=== PATIENT | male | born 1960 | race Caucasian/White ===

== ENCOUNTER 2016-09-16 | Emergency (ER) | payer MEDICAID ==
[~2016-09-16] VITALS: Ht 172.7 cm; Wt 78.0 kg
[2016-09-16 00:02] VITALS: BP 138/68; PULSE 67; RESP 16; TEMP 98.5; O2SAT 97
[2016-09-16] MEDS ORDERED: LAMI1SPR TOPICAL (00:20)
[2016-09-16] MEDS ORDERED: DICL75TA PO (00:20)
--- NOTE | 2016-09-16 00:28 | PD ---
HPI Chief Complaint: Injury Time Seen by Provider: 00:21 Travel History International Travel<30 days: No Contact w/Intl Traveler<30days: No Traveled to known affect area: No History of Present Illness HPI 56-year-old white male presents with a mobile complains of left ankle pain after injury this afternoon. He states that he had struck his ankle. He has a history of chronic foot and ankle pain after having bilateral foot and heel fractures. He also states that his feet are been wet for some time now and have developed a bad rash between his toes. Symptoms are moderate. He denies any fever chills. PFSH Past Medical History Narrative Medical Hypertension, coronary artery disease Hx Anticoagulant Therapy: Yes (ASA) Cardiovascular Problems: Yes ([place], STENT) Respiratory: Yes (COPD) Tetanus Vaccination: < 5 Years Past Surgical History Narrative Surgical PTCA with stent, bilateral ankle fractures os calcis fractures Social History Alcohol Use: Yes Tobacco Use: Yes Allergies-Medications (Allergen,Severity, Reaction): Coded Allergies: No Known Allergies (Unverified , 09/16/16) Reported Meds & Prescriptions Reported Meds & Active Scripts Active No Active Prescriptions or Reported Medications Review of Systems Except as stated in HPI: all other systems reviewed are Neg Physical Exam Narrative GENERAL: This is a well-nourished, well-developed patient, in no apparent distress. SKIN: No rashes, ecchymoses or lesions. Warm and dry. HEAD: Atraumatic. Normocephalic. EYES: PERRL, EOMI, no discharge or injection. No scleral icterus. EARS: Clear NOSE: Nasal turbinates appear normal. THROAT: Mucosa pink and moist. Airway patent. NECK: Trachea midline. supple, moves head freely. LUNGS: Clear to auscultation. CV: Regular in rhythm. ABDOMEN: Soft nontender. EXT: No clubbing cyanosis. Examination of the left lower extremity reveals tenderness to the lateral anterior talofibular ligament. Patient has mild swelling. No significant bony tenderness over the medial lateral malleolus. No pain in the heel or Achilles. Patient has large amount of skin breakdown, maceration and very foul odor to both feet. This is to the interdigital spaces of the toes and distal forefoot. Data Data Last Documented VS Vital Signs Date Time Temp Pulse Resp B/P Pulse Ox O2 Delivery O2 Flow Rate FiO2 09/16/16 00:02 98.5 67 16 138/68 97 Orders Ankle, Complete ([id number]) (09/16/16 00:18) Ice/Cold Pack (09/16/16 00:18) Splint Or Brace Apply/Monitor (09/16/16 00:18) MDM Medical Decision Making Medical Screen Exam Complete: Yes Emergency Medical Condition: Yes Medical Record Reviewed: Yes Interpretation(s) Left ankle: There is a nondisplaced fracture off the tip of the lateral malleolus. Differential Diagnosis MDM: High Differential diagnoses: Fracture, sprain, strain, dislocation, contusion, neurovascular injury Narrative Course X-ray of the left ankle is negative for acute bony injury. Patient of significant tinea pedis. Diagnosis Primary Impression: Fractured lateral malleolus Qualified Code: S82.64XA - Closed nondisplaced fracture of lateral malleolus of right fibula, initial encounter Additional Impression: Tinea pedis Qualified Code: B35.3 - Tinea pedis of both feet Patient Instructions: General Instructions Additional Instructions: Rest. Elevation. Dileep wrap and chem walker. Twice daily wound care with soap, water and Lamisil. Follow-up with a media [employer] in one week. Keep your feet clean and dry. Med/Other Pt SpecificInfo: Prescription(s) given, Wound Care Scripts No Active Prescriptions or Reported Meds Disposition: 01 DISCHARGE HOME Condition: Stable Kailash Ba Sep 16, 2016 00:28
--- NOTE | 2016-09-16 00:45 | RADRPT ---
EXAM DATE/TIME: 09/16/2016 00:39 [facility] COMPARISON: No previous studies available for comparison. INDICATIONS : Left ankle pain post hitting on trailer hitch. MEDICAL HISTORY : None. SURGICAL HISTORY : ORIF left heel ENCOUNTER: Initial ACUITY: 1 day PAIN SCORE: 7/10 LOCATION: Left ankle FINDINGS: There is soft tissue swelling at the lateral aspect of the ankle, 2 screws traversing the calcaneus w ith remote fracture deformity of the calcaneus, and an acute avulsion fracture fragment off the tip o f the distal fibula. CONCLUSION: Acute distal fibular fracture with soft tissue swelling. Walt Orlando MD on September 16, 2016 at 0:43 Board Certified Radiologist. This report was verified electronically.
[2016-09-16] MEDS ORDERED: HYDR-3533 PO (00:53)
[2016-09-16] MEDS ORDERED: ACETAMINOPHEN/HYDROcodone 325 MG/5 MG TAB PO ONE (01:00)
== END 2016-09-16 02:39 | disposition home or self-care (01) ==
LOC: NEPD
DX: S82.64XA Nondisplaced fracture of lateral malleolus of right fibula, initial encounter for closed fracture (principal); B35.3 Tinea pedis; I10 Essential (primary) hypertension; I25.10 Atherosclerotic heart disease of native coronary artery without angina pectoris; Z79.82 Long term (current) use of aspirin; I25.2 Old myocardial infarction; Z72.0 Tobacco use; X58.XXXA Exposure to other specified factors, initial encounter
CPT/HCPCS: 73610; 99283; E0113; L2114

== ENCOUNTER 2016-09-26 07:39 | Emergency (ER) | payer MEDICAID ==
[~2016-09-26] VITALS: Ht 172.7 cm; Wt 75.0 kg
[~2016-09-26 07:39] MED LIST: HYDR-3533 PO
[2016-09-26 07:41] VITALS: BP 200/86; PULSE 86; RESP 18; TEMP 98.4; O2SAT 99
[2016-09-26 07:43] VITALS: BP 191/87
[2016-09-26 07:54] VITALS: BP 181/83; PULSE 63; RESP 20
[2016-09-26] MEDS ORDERED: LISI-515 PO (07:54)
[2016-09-26] MEDS ORDERED: LISINOPRIL 20 MG TAB PO ONE (08:15)
[2016-09-26] MEDS ORDERED: KETOROLAC TROMETHAMINE 60 MG/2 ML (IM) VIAL IM ONE (08:15)
[2016-09-26] MEDS ORDERED: DIAZEPAM 5 MG TAB PO ONE (08:15)
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
[2016-09-26 08:24] VITALS: BP 157/74; PULSE 57; RESP 20
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
[2016-09-26] MEDS ORDERED: IBUP-232 PO (11:34)
== END 2016-09-26 11:58 | disposition home or self-care (01) ==
LOC: NEPE 07:39
DX: M54.42 Lumbago with sciatica, left side (principal); I10 Essential (primary) hypertension; E78.00 Pure hypercholesterolemia, unspecified; Z72.0 Tobacco use; Z79.82 Long term (current) use of aspirin; Z86.79 Personal history of other diseases of the circulatory system; Z87.09 Personal history of other diseases of the respiratory system
CPT/HCPCS: 72100; 72131; 96372; 99285; J1885

== ENCOUNTER 2016-10-18 02:44 | Emergency (ER) | payer MEDICAID ==
[~2016-10-18] VITALS: Ht 172.7 cm; Wt 75.0 kg
[~2016-10-18 02:44] MED LIST changes: -HYDR-3533 PO; +IBUP-232 PO; +LISI-515 PO
[2016-10-18 02:59] VITALS: BP 148/69; PULSE 63; RESP 18; TEMP 98.1; O2SAT 97
[2016-10-18] MEDS ORDERED: DICL75TA PO (03:05)
[2016-10-18] MEDS ORDERED: ROBA500T PO (03:05)
--- NOTE | 2016-10-18 03:13 | PD ---
HPI Chief Complaint: Back/ Neck Pain or Injury Time Seen by Provider: 02:53 Travel History International Travel<30 days: No Contact w/Intl Traveler<30days: No Traveled to known affect area: No History of Present Illness HPI 56-year-old white male presents to emergency department for evaluation of back pain. He states that he had a injury to his back last month and was given prescription for Flexeril and Motrin. He states that it was doing better until this evening. [place]. He states that he had worsening pain this evening causing him to call 911. Patient denies any acute injury today. Patient is moderate. Worse with activity and bending. No alleviating factor. He denies any recent illness. No fever chills. No abdominal pain or urinary symptoms. He states he had taken one of his Flexeril without relief. The patient does admit to substance abuse. He states that he has not used any drugs in nearly 6-8 months. He does drink alcohol and smoke cigarettes. PFSH Past Medical History Hx Anticoagulant Therapy: Yes (ASA) Cardiovascular Problems: Yes ([place], STENT) High Cholesterol: Yes Chest Pain: Yes Cerebrovascular Accident: Yes Diminished Hearing: No Hypertension: Yes Respiratory: Yes (COPD) Immunizations Current: Yes Past Surgical History Coronary Stent: Yes Social History Alcohol Use: Yes (RARELY) Tobacco Use: Yes (1PPD) Substance Use: No (DENIES-HX HEROIN OCC) Allergies-Medications (Allergen,Severity, Reaction): Coded Allergies: No Known Allergies (Unverified , 10/18/16) Reported Meds & Prescriptions Reported Meds & Active Scripts Active Diclofenac Sodium DR (Diclofenac Sodium) 75 Mg Tabdr 75 Mg PO BID Robaxin (Methocarbamol) 500 Mg Tab 1,000 Mg PO TID Ibuprofen 600 Mg Tab 600 Mg PO Q8HR PRN Reported Lisinopril 20 Mg Tab 20 Mg PO DAILY Review of Systems Except as stated in HPI: all other systems reviewed are Neg Physical Exam Narrative GENERAL: Well-developed, well-nourished in no apparent distress. Nontoxic appearing. HEAD: Normocephalic, atraumatic. EYES: Pupils equal round and reactive. Extraocular motions intact. No scleral icterus. No injection or drainage. ENT: Nose clear. Throat without erythema, tonsillar hypertrophy or exudate. Uvula midline. Airway patent. NECK: Trachea midline. Supple, nontender, moves head freely. No central bony tenderness or spasm. CARDIOVASCULAR: Regular rate and rhythm without murmurs, gallops, or rubs. RESPIRATORY: Clear to auscultation. Breath sounds equal bilaterally. No wheezes , rales, or rhonchi. GASTROINTESTINAL: Abdomen soft, non-tender, nondistended. No hepato-splenomegaly , or palpable masses. No guarding. EXTREMITIES: No clubbing, cyanosis, or edema. No joint tenderness. BACK: No central bony tenderness without deformity. Patient complains of bilateral paraspinal tenderness in the lower lumbar region No flank tenderness. Patient is able to stand and bend forward. No saddle anesthesia. NEUROLOGICAL: Awake, alert and oriented x 3 .Cranial nerves grossly intact. Motor and sensory grossly within normal limits. Normal speech. Data Data Last Documented VS Vital Signs Date Time Temp Pulse Resp B/P (MAP) Pulse Ox O2 Delivery O2 Flow Rate FiO2 10/18/16 02:59 98.1 63 18 148/69 (95) 97 Orders Orders Ketorolac Inj (Toradol Inj) (10/18/16 03:15) Orphenadrine Inj (Norflex Inj) (10/18/16 03:15) Acetamin-Hydrocod 325-5 Mg (Hana 5-325 (10/18/16 03:15) MDM Medical Decision Making Medical Screen Exam Complete: Yes Emergency Medical Condition: Yes Medical Record Reviewed: Yes Differential Diagnosis MDM: High Differential diagnoses: AAA,Fracture, sprain, strain, HNP, nerve or vascular injury, epidural abscess, pilonidal cyst, pyelonephritis, UTI, nephrolithiasis, ureterolithiasis Narrative Course Patient given Toradol 60 mg and Norflex 60 mg IM. Lortab 5 mg by mouth. Patient will be given a prescription for diclofenac and Robaxin. This is acute exacerbation of chronic back pain Diagnosis Primary Impression: Acute exacerbation of chronic low back pain Patient Instructions: Narcotic given in the ED, General Instructions Additional Instructions: Rest. Ice for the next 3 days followed by heat . Robaxin and Voltaren. Follow-up with a primary care doctor in one week. Return to the ER for emergencies. Med/Other Pt SpecificInfo: Prescription(s) given Scripts Diclofenac Sodium (Diclofenac Sodium DR) 75 Mg Tabdr 75 MG PO BID, #20 TAB 0 Refills Prov: Sherrie Beckford MD 10/18/16 Methocarbamol (Robaxin) 500 Mg Tab 1000 MG PO TID for Muscle Spasm, #60 TAB 0 Refills Prov: Sherrie Beckford MD 10/18/16 Disposition: 01 DISCHARGE HOME Condition: Stable Kailash Ba Oct 18, 2016 03:13
[2016-10-18] MEDS ORDERED: ORPHENADRINE INJ 60 MG/2 ML AMP IM ONE (03:15)
[2016-10-18] MEDS ORDERED: KETOROLAC TROMETHAMINE 60 MG/2 ML (IM) VIAL IM ONE (03:15)
[2016-10-18] MEDS ORDERED: ACETAMINOPHEN/HYDROcodone 325 MG/5 MG TAB PO ONE (03:15)
== END 2016-10-18 04:54 | disposition home or self-care (01) ==
LOC: NEPD 02:44
DX: M54.5 Low back pain (principal); G89.29 Other chronic pain; F17.210 Nicotine dependence, cigarettes, uncomplicated
CPT/HCPCS: 96372; 99284; J1885; J2360

== ENCOUNTER 2016-11-26 00:03 | Emergency (ER) | payer MEDICAID ==
[~2016-11-26] VITALS: Ht 172.7 cm; Wt 76.0 kg
[~2016-11-26 00:03] MED LIST changes: +DICL75TA PO; +ROBA500T PO
[2016-11-26 00:05] VITALS: BP 128/60; PULSE 75; RESP 16; TEMP 98.4; O2SAT 96
[2016-11-26] MEDS ORDERED: INDO25CA PO (00:48)
--- NOTE | 2016-11-26 00:49 | PD ---
HPI Chief Complaint: Skin Problem Time Seen by Provider: 00:42 Travel History International Travel<30 days: No Contact w/Intl Traveler<30days: No Traveled to known affect area: No History of Present Illness HPI Patient is a 56-year-old male presenting to emergency department evaluation of left elbow swelling. Patient states it started 3-4 days ago he denies any injury or trauma. He denies any significant pain, he states the pain is 3 out of 10 and states it sort times. He denies bumping it or hitting it. He denies any fever, chills, redness, warmth to the affected area. He denies history of the same. Pain is alleviated with rest, exacerbated if it's hit on something. PFSH Past Medical History Hx Anticoagulant Therapy: Yes (ASA) Cardiovascular Problems: Yes ([place], STENT) High Cholesterol: Yes Chest Pain: Yes Cerebrovascular Accident: Yes (CVA) Diminished Hearing: No Hypertension: Yes Respiratory: Yes Immunizations Current: Yes Past Surgical History Coronary Stent: Yes Social History Alcohol Use: Yes (RARELY) Tobacco Use: Yes (1PPD) Substance Use: No (DENIES-HX HEROIN OCC) Allergies-Medications (Allergen,Severity, Reaction): Coded Allergies: No Known Allergies (Unverified , 11/26/16) Reported Meds & Prescriptions Reported Meds & Active Scripts Active Diclofenac Sodium DR (Diclofenac Sodium) 75 Mg Tabdr 75 Mg PO BID Robaxin (Methocarbamol) 500 Mg Tab 1,000 Mg PO TID Ibuprofen 600 Mg Tab 600 Mg PO Q8HR PRN Reported Lisinopril 20 Mg Tab 20 Mg PO DAILY Review of Systems Except as stated in HPI: all other systems reviewed are Neg Musculoskeletal: Positive: Edema Physical Exam Narrative GENERAL: Well-developed, well-nourished, alert male. Resting comfortably in no acute distress. SKIN: Warm and dry. No rash or obvious lesions, no erythema noted to the posterior left elbow. Edema to left elbow posteriorly. Nontender to palpation. HEAD: Normocephalic. EYES: No scleral icterus. No injection or drainage. NECK: Supple, trachea midline. No JVD or lymphadenopathy. CARDIOVASCULAR: Regular rate and rhythm without murmurs, gallops, or rubs. RESPIRATORY: Breath sounds equal bilaterally. No accessory muscle use. GASTROINTESTINAL: Abdomen soft, non-tender, nondistended. MUSCULOSKELETAL: No cyanosis, full range of motion in left elbow, 2+ radial pulse, brisk was 3 second capillary refill. No obvious deformities noted other than the edema. BACK: Nontender without obvious deformity. No CVA tenderness. Data Data Last Documented VS Vital Signs Date Time Temp Pulse Resp B/P (MAP) Pulse Ox O2 Delivery O2 Flow Rate FiO2 11/26/16 00:05 98.4 75 16 128/60 (82) 96 Room Air Orders Orders Dileep Bandage (11/26/16 00:42) MDM Medical Decision Making Medical Screen Exam Complete: Yes Emergency Medical Condition: Yes Interpretation(s) Vital Signs Date Time Temp Pulse Resp B/P (MAP) Pulse Ox O2 Delivery O2 Flow Rate FiO2 11/26/16 00:05 98.4 75 16 128/60 (82) 96 Room Air Differential Diagnosis Septic arthritis versus cranium bursitis versus cellulitis versus other Narrative Course Patient is a 48-year-old male presenting to emergency for evaluation of left elbow swelling. Patient's vital signs are stable, he is afebrile. He denies any injury or trauma. Physical examination appears consistent with bursitis. Patient will be placed in an Dileep wrap for compression to help with swelling. He will be placed on anti-inflammatory medications. His primary care provider is Dr. Dobbins, he was advised to follow-up with him. He was educated on the signs and symptoms of infection and none of which are present at this time. He was advised to return to emergency department immediately for any new or worsening symptoms. Patient verbalizes understanding of these instructions. Patient is stable for discharge. Diagnosis Primary Impression: Bursitis of left elbow Qualified Codes: M70.22 - Olecranon bursitis, left elbow Referrals: Dave Dobbins MD 1 week Patient Instructions: Elbow Bursitis (ED), General Instructions Additional Instructions: Follow-up with your primary doctor Keep Dileep wrap on for support and compression Take medications as directed Return to emergency department for any new or worsening symptoms Med/Other Pt SpecificInfo: Prescription(s) given Scripts Indomethacin (Indomethacin) 25 Mg Cap 25 MG PO TID Y for PAIN SCALE 1 TO 10, #30 CAP 0 Refills Take with food, milk, or antacids to decrease stomach adverse effects. Prov: Sandy Craven 11/26/16 Disposition: 01 DISCHARGE HOME Condition: Stable Sandy Craven Nov 26, 2016 00:49
[2016-11-26] MEDS ORDERED: SUBO8MIS SL (18:43)
[2016-11-27] MEDS ORDERED: LISI-515 PO (02:19)
== END 2016-11-26 01:11 | disposition home or self-care (01) ==
LOC: NEPD 00:03
DX: M70.22 Olecranon bursitis, left elbow (principal); I10 Essential (primary) hypertension; F17.200 Nicotine dependence, unspecified, uncomplicated
CPT/HCPCS: 99283

== ENCOUNTER 2016-11-26 18:00 | Emergency (ER) | payer MEDICAID ==
[~2016-11-26] VITALS: Ht 172.7 cm; Wt 76.4 kg
[~2016-11-26 18:00] MED LIST changes: +INDO25CA PO
[2016-11-26 18:03] VITALS: BP 204/93; PULSE 66; RESP 15; TEMP 98.4; O2SAT 99
--- NOTE | 2016-11-26 18:16 | PD ---
Physical Exam Date Seen by Provider: Nov 26, 2016 Time Seen by Provider: 18:13 Narrative 56-year-old male presents to the emergency department with reports of self-medication with heroine for a sense of paranoid. Patient's been off his meds approximately 9 months. Patient has had painful swelling of the left elbow for the past 3 days which was seen in the ED last evening. Patient now is feeling more anxious and paranoid and is requesting psychiatric evaluation. Patient denies specific suicidal ideation or homicidal ideation at this time. Patient has no known drug allergies. Data Data Last Documented VS Vital Signs Date Time Temp Pulse Resp B/P (MAP) Pulse Ox O2 Delivery O2 Flow Rate FiO2 11/26/16 18:03 98.4 66 15 204/93 (130) 99 MDM Medical Record Reviewed: Yes Supervised Visit with DONITA: Yes Narrative Course Patient appears medically stable and cooperative. Psychiatric labs ordered per protocol. Condition: Stable Valentin Monson Nov 26, 2016 18:16
[2016-11-26 18:41] VITALS: BP 208/89; PULSE 60; RESP 16; O2SAT 98
[2016-11-26] MEDS ORDERED: SUBO8MIS SL (18:43)
[2016-11-26 18:49] LABS: AUTOMATED NEUTROPHIL # 5.7 TH/MM3 (1.8-7.7); BASOPHIL # 0.1 TH/MM3 (0-0.2); BASOPHIL % 0.7 % (0.0-2.0); EOSINOPHIL # 0.3 TH/MM3 (0-0.4); EOSINOPHIL % 3.4 % (0.0-4.0); HEMO FLAGS DIFF FINAL; LYMPH % 22.7 % (9.0-44.0); MEAN CELL VOLUME 76.1 FL (80.0-100.0); MEAN CORPUSCULAR HEMOGLOBIN 24.4 PG (27.0-34.0); MEAN CORPUSCULAR HGB CONC 32.1 % (32.0-36.0); MONO % 8.5 % (0.0-8.0); NEUT % 64.7 % (16.0-70.0); PLATELET COUNT 258 TH/MM3 (150-450); RED BLOOD COUNT 5.39 MIL/MM3 (4.50-5.90); RED CELL DISTRIBUTION WIDTH 15.1 % (11.6-17.2); WHITE BLOOD COUNT 8.9 TH/MM3 (4.0-11.0)
[2016-11-26 19:03] LABS: ALT (GPT) 22 U/L (12-78); ANION GAP 6 MEQ/L (5-15); AST (GOT) 26 U/L (15-37); BLOOD UREA NITROGEN 27 MG/DL (7-18); CHLORIDE 103 MEQ/L (98-107); GLOMERULAR FILTRATION RATE 47 ML/MIN (>89); POTASSIUM 3.8 MEQ/L (3.5-5.1); SODIUM (NA) 135 MEQ/L (136-145)
[2016-11-26 19:06] LABS: ALKALINE PHOSPHATASE 105 U/L (45-117); TOTAL BILIRUBIN ADULT 0.3 MG/DL (0.2-1.0)
[2016-11-26] MEDS: SODIUM CHLOR 0.9% 1000 ML INJ 1,000 ML IV SCH ×2 (21:15→21:29)
[2016-11-26 22:59] VITALS: BP 172/74; PULSE 82; RESP 16; O2SAT 98
--- NOTE | 2016-11-26 23:33 | PD ---
HPI Chief Complaint: Psychiatric Symptoms Time Seen by Provider: 20:23 Travel History International Travel<30 days: No Contact w/Intl Traveler<30days: No Traveled to known affect area: No History of Present Illness HPI This is a 56-year-old male who presents to the emergency department with increasing depression, feeling like he is having trouble controlling his thoughts, constant, moderate severity. He says that 3 days ago he injected himself with Hancock-Valerie in a suicide attempt. He has a history of chronic alcoholism and substance abuse. PFSH Past Medical History Hx Anticoagulant Therapy: Yes (ASA) Bipolar Disorder: Yes Anxiety: Yes Cardiovascular Problems: Yes ([place], STENT) High Cholesterol: Yes Chest Pain: Yes Cerebrovascular Accident: Yes (CVA) Diminished Hearing: No Hypertension: Yes Respiratory: Yes Immunizations Current: Yes Myocardial Infarction: Yes Schizophrenia: Yes Influenza Vaccination: No Past Surgical History Coronary Stent: Yes Social History Alcohol Use: Yes (RARELY) Tobacco Use: Yes (1PPD) Substance Use: No (HEROIN AND COCAINE) Allergies-Medications (Allergen,Severity, Reaction): Coded Allergies: No Known Allergies (Unverified , 11/26/16) Reported Meds & Prescriptions Reported Meds & Active Scripts Active Reported Suboxone Sublingual Film (Buprenorphine-Naloxone Sublingual Film) 8-2 Mg Film 1 Film SL BID Unique ID number required: Review of Systems Except as stated in HPI: all other systems reviewed are Neg Physical Exam Narrative GENERAL:Well appearing, no acute distress SKIN: Focused skin assessment warm and dry. HEAD: Atraumatic. Normocephalic. EYES: Pupils equal and round. No injection or drainage. ENT: Moist mucous membranes NECK: Trachea midline. CARDIOVASCULAR: Regular rate and rhythm. No murmur appreciated. RESPIRATORY: Clear to auscultation. Breath sounds equal bilaterally. GASTROINTESTINAL: Abdomen soft, non-tender, nondistended. MUSCULOSKELETAL: No obvious deformities. NEUROLOGICAL: Awake and alert. No obvious cranial nerve deficits. Moving all extremities. PSYCHIATRIC: Expressing any suicidal ideation, normal mood and affect somewhat incongruent to his comments. Data Data Last Documented VS Vital Signs Date Time Temp Pulse Resp B/P (MAP) Pulse Ox O2 Delivery O2 Flow Rate FiO2 11/26/16 22:59 82 16 172/74 (106) 98 Room Air 11/26/16 18:03 98.4 Orders Orders Complete Blood Count With Diff (11/26/16 18:16) Comprehensive Metabolic Panel (11/26/16 18:16) Psych Screen (11/26/16 18:16) Drug Screen, Random Urine (11/26/16 18:16) Sodium Chlor 0.9% 1000 Ml Inj (Ns 1000 M (11/26/16 21:15) Labs Laboratory Tests Test 11/26/16 18:33 11/26/16 22:42 White Blood Count 8.9 TH/MM3 Red Blood Count 5.39 MIL/MM3 Hemoglobin 13.2 GM/DL Hematocrit 41.0 % Mean Corpuscular Volume 76.1 FL Mean Corpuscular Hemoglobin 24.4 PG Mean Corpuscular Hemoglobin Concent 32.1 % Red Cell Distribution Width 15.1 % Platelet Count 258 TH/MM3 Mean Platelet Volume 7.7 FL Neutrophils (%) (Auto) 64.7 % Lymphocytes (%) (Auto) 22.7 % Monocytes (%) (Auto) 8.5 % Eosinophils (%) (Auto) 3.4 % Basophils (%) (Auto) 0.7 % Neutrophils # (Auto) 5.7 TH/MM3 Lymphocytes # (Auto) 2.0 TH/MM3 Monocytes # (Auto) 0.8 TH/MM3 Eosinophils # (Auto) 0.3 TH/MM3 Basophils # (Auto) 0.1 TH/MM3 CBC Comment DIFF FINAL Differential Comment Blood Urea Nitrogen 27 MG/DL Creatinine 1.53 MG/DL Random Glucose 80 MG/DL Total Protein 7.9 GM/DL Albumin 3.4 GM/DL Calcium Level 9.0 MG/DL Alkaline Phosphatase 105 U/L Aspartate Amino Transf (AST/SGOT) 26 U/L Alanine Aminotransferase (ALT/SGPT) 22 U/L Total Bilirubin 0.3 MG/DL Sodium Level 135 MEQ/L Potassium Level 3.8 MEQ/L Chloride Level 103 MEQ/L Carbon Dioxide Level 26.0 MEQ/L Anion Gap 6 MEQ/L Estimat Glomerular Filtration Rate 47 ML/MIN MDM Medical Decision Making Medical Screen Exam Complete: Yes Emergency Medical Condition: Yes Interpretation(s) No leukocytosis Electrolytes are reassuring Differential Diagnosis Alcohol intoxication, drug intoxication, adjustment reaction, alcohol-induced mood disorder Narrative Course This is a 56-year-old male who presents to the emergency department having injected Hancock-Valerie in a suicide attempt 3 days ago. He appears well on exam. His affect is somewhat incongruent with his chief complaint. Labs are obtained which were reassuring. I think patient is medically cleared for psychiatric evaluation. Condition: Stable Amy Aaron MD Nov 26, 2016 23:33
[2016-11-27 02:00] VITALS: BP 184/86; PULSE 55; RESP 18; O2SAT 97
[2016-11-27] MEDS ORDERED: LISI-515 PO (02:19)
[2016-11-27] MEDS ORDERED: amLODIPine BESYLATE 5 MG TAB PO ONE (06:15)
[2016-11-27 06:18] VITALS: BP 188/83; PULSE 59; RESP 18; O2SAT 98
[2016-11-27] MEDS ORDERED: ACETAMINOPHEN 325 MG TAB PO ONE (06:30)
[2016-11-27 10:00] VITALS: BP 137/67; PULSE 55; RESP 18
[2016-11-27 14:05] VITALS: BP 154/77; PULSE 57; RESP 16
[2016-11-27 14:11] VITALS: BP 151/77; PULSE 57; RESP 16; TEMP 98.2; O2SAT 98
[2016-11-27] MEDS ORDERED: FLUMAZENIL 0.5 MG/5 ML VIAL IV PUSH PRN (14:30)
[2016-11-27] MEDS ORDERED: LORazepam 2 MG TAB PO PRN (14:30)
[2016-11-27] MEDS ORDERED: LORazepam 2 MG/ML VIAL IV PUSH PRN ×4 (14:30)
[2016-11-27] MEDS: LORazepam 1 MG TAB PO PRN ×2 (14:49→20:14)
[2016-11-27 18:00] VITALS: BP 145/81; PULSE 56; RESP 18
[2016-11-28 02:05] VITALS: BP 204/95; PULSE 58; RESP 16; TEMP 100.8; O2SAT 97
[2016-11-28 02:10] VITALS: BP 165/99
[2016-11-28] MEDS: LORazepam 1 MG TAB PO PRN (06:32)
[2016-11-28] MEDS ORDERED: cloNIDine HCL 0.2 MG TAB PO ONE (09:45)
--- NOTE | 2016-11-28 09:54 | PD ---
History of Present Illness Chief Complaint: Psychiatric Symptoms Time Seen by Provider: 09:30 Travel History International Travel<30 Days: No Contact w/Intl Traveler<30days: No Known affected area: No Legal Status Legal Status: Voluntary History of Present Illness: History of Present Illness This is a 56-year-old male with history of substance use disorder, positive toxicology for opiates, barbiturates, cocaine who presents to the emergency department on a voluntary basis reporting increase in depression, feeling like he is having trouble controlling his thoughts, requesting to be assisted with obtaining a men's alf house. He says that 3 days ago he injected himself with Chauvin-Valerie in a suicide attempt but did not seek treatment at that time. EMR reviewed. The patient had presented earlier in the day to this ED complaining of elbow pain.At that time he did not report that he was depressed or that he had injected himself with Chauvin-Valerie and did not report any psychiatric symptoms. The patient was monitored in secure environment for extended period of time. He did not present any behavioral concerns and no suicidality. He did not appear to be responding to internal stimuli. This morning he is awake, alert and oriented. His speech is clear and logical. he is not psychotic, not internally preoccupied. Does not appear depressed. He is requesting treatment for his opiate addiction and wants to be placed at a alf house. When informed we are not a substance abuse treatment facility he then states he needs to get back on his psychiatric medication. PFSH Past Medical History Hx Anticoagulant Therapy: Yes (ASA) Bipolar Disorder: Yes Anxiety: Yes Cardiovascular Problems: Yes ([place], [place]) High Cholesterol: Yes Chest Pain: Yes Cerebrovascular Accident: Yes (CVA) Diminished Hearing: No Hypertension: Yes Respiratory: Yes Immunizations Current: Yes Myocardial Infarction: Yes Schizophrenia: Yes Influenza Vaccination: No Past Surgical History Coronary Stent: Yes Psychiatric History Psychiatric History Hx Psychiatric Treatment: Patient with a stated hx of schizophrenia, anxiety and bipolar disorders. Also noted is a history of polysubstance abuse. Inpatient admission at [facility] in [place], [place], unknown date. Patient noncompliant with follow up care at [facility]. He states he has not taken his medications for 1 yr. History of Inpatient Treatment: Yes Guns or firearms in home: No Social History male, born in [place]. Has been in area x 2 years. Was incarcerated x 10 years and released in 2015. Was living with his sister. Patient is on disability. Hx Alcohol Use: Yes (RARELY) Hx Tobacco Use: Yes (1PPD) Hx Substance Use: No (cocaine, opiates, barbiturates) Substance Use Type: Nicotine/Cigarettes, Cocaine, Synth Opiates-Pain Pills, Other Other Substances Used: 1ppd, sedative-hypnotics Hx of Substance Use Treatment: No Family Psychiatric History None reported. Allergies-Medications (Allergen,Severity, Reaction): Coded Allergies: No Known Allergies (Unverified , 11/26/16) Reported Meds & Prescriptions Reported Meds & Active Scripts Active Reported Lisinopril 20 Mg Tab 20 Mg PO DAILY Suboxone Sublingual Film (Buprenorphine-Naloxone Sublingual Film) 8-2 Mg Film 1 Film SL BID Unique ID number required: Review of Systems Except as stated in HPI: all other systems reviewed are Neg Mental Status Examination Appearance: Appropriate (In [facility].) Consciousness: Alert Orientation: x4 Motor Activity: Normal gait Speech: Unremarkable Language: Adequate Fund of Knowledge: Adequate Attention and Concentration: Adequate Memory: Unremarkable Mood: Appropriate Affect: Appropriate Thought Process & Associations: Intact Thought Content: Appropriate Hallucination Type: None Delusion Type: None Suicidal Ideation: No Suicidal Plan: No Suicidal Intention: No Homicidal Ideation: No Homicidal Plan: No Homicidal Intention: No Insight: Poor Judgment: Impulsive MDM Medical Decision Making Medical Record Reviewed: Yes Assessment/Plan This is a 56-year-old male with history of substance use disorder as well as reported history of bipolar disorder , positive toxicology for opiates, barbiturates, cocaine who presents to the emergency department on a voluntary basis reporting increase in depression, feeling like he is having trouble controlling his thoughts. He says that 3 days ago he injected himself with Chauvin -Valerie in a suicide attempt but did not seek treatment at that time. The patient was monitored in secure environment for extended period of time. He did not present any behavioral concerns and no suicidality. He did not appear to be responding to internal stimuli or present any other symptom indicative of a psychiatric illness. He does not meet criteria for inpatient psychiatric treatment as his main issue at this time is substance abuse. Provided psychoeducation. Patient is referred to [facility] as well as will be given the numbers to area sober living facilities. Upon discharge he states " The problem is I don't get my check until the first of the month". He will be provided a bus pass to present himself to [facility]. Psychiatrically clear for discharge. Orders Orders Diet Regular Basic (11/27/16 Lunch) Alcohol Withdrawal Asmt-Ciwa [id number] (11/27/16 14:25) Flumazenil Inj (Romazicon Inj) (11/27/16 14:30) Lorazepam (Ativan) (11/27/16 14:30) Lorazepam Inj (Ativan Inj) (11/27/16 14:30) Lorazepam (Ativan) (11/27/16 14:30) Lorazepam Inj (Ativan Inj) (11/27/16 14:30) Lorazepam Inj (Ativan Inj) (11/27/16 14:30) Lorazepam Inj (Ativan Inj) (11/27/16 14:30) Diet Regular Basic (11/27/16 Dinner) Diet Regular Basic (11/28/16 Breakfast) Clonidine (Catapres) (11/28/16 09:45) Results Vital Signs Date Time Temp Pulse Resp B/P (MAP) Pulse Ox O2 Delivery O2 Flow Rate FiO2 11/28/16 02:10 165/99 (121) 11/28/16 02:05 100.8 58 16 204/95 (131) 97 11/27/16 18:00 56 18 145/81 (102) Room Air 11/27/16 14:11 98.2 57 16 151/77 (101) 98 Room Air 11/27/16 14:05 57 16 154/77 (102) 11/27/16 10:00 55 18 137/67 (90) Room Air Diagnosis Primary Impression: Substance abuse Additional Impression: Opiate dependence Psychiatrically Cleared: Yes Med/ Other Pt Specific Info: No Meds Exist/No RX given Disposition: 01 DISCHARGE HOME Condition: Stable Problem Qualifiers Additional Impression: Opiate dependence Qualified Codes: F11.20 - Opioid dependence, uncomplicated Elana Pepper [facility] Nov 28, 2016 09:54
== END 2016-11-28 11:10 | disposition home or self-care (01) ==
LOC: NEPD 18:00 → NEPJ 11-28 11:10
DX: F11.20 Opioid dependence, uncomplicated (principal); F31.9 Bipolar disorder, unspecified; F20.9 Schizophrenia, unspecified; I10 Essential (primary) hypertension; F17.200 Nicotine dependence, unspecified, uncomplicated
CPT/HCPCS: 80053; 80307; 85025; 99284; J7030